=== PATIENT | female | born 1990 | race Hispanic/Latino ===

== ENCOUNTER 2017-07-09 10:00 | Emergency (ER) | payer MEDICAID, OTHER | END 2017-07-09 11:29 | disposition home or self-care (01) | LOC: EDH 10:00 | DX: Z32.00 Encounter for pregnancy test, result unknown (principal) | CPT/HCPCS: 36415; 84702 ==

== ENCOUNTER 2017-09-08 15:13 | Emergency (ER) | payer MEDICAID ==
[2017-09-08] MEDS ORDERED: SODIUM CHLORIDE 0.9% 1000ML 1,000 ML IV ONE (16:07)
[2017-09-08] MEDS ORDERED: ONDANSETRON HCL 4 MG/2 ML VIAL ONE (16:07)
[2017-09-08 16:08] LABS: BASOPHILS % (AUTO) 0.3 % (0.0-5.0); EOSINOPHILS % (AUTO) 0.4 % (0.0-8.0); HEMATOCRIT 36.8 % (36-48); LYMPHOCYTES % (AUTO) 17.8 % (21.0-51.0); MEAN CORPUSCULAR HEMOGLOBIN 32.8 pg (27.0-33.0); MEAN CORPUSCULAR HGB CONC 36.2 g/dL (32.0-36.0); MEAN CORPUSCULAR VOLUME 90.7 fL (79-99); MONOCYTES % (AUTO) 5.3 % (3.0-13.0); NEUTROPHILS % (AUTO) 76.2 % (40.0-77.0); PLATELET COUNT (AUTO) 431 K/uL (130-400); RED BLOOD CELL COUNT(AUTO) 4.06 MIL/uL (4.00-5.50); RED CELL DISTRIBUTION WIDTH 12.4 % (11.0-15.5); WHITE BLOOD COUNT (AUTO) 8.9 K/uL (4.8-10.8)
[2017-09-08 16:14] LABS: APPEARANCE,URINE Clear (CLEAR); BILIRUBIN,URINE Small (NEGATIVE); COLOR,URINE Dark Yellow (YELLOW); GLUCOSE, URINE (UA) Negative (NEGATIVE); KETONES,URINE >=160 mg/dL (NEGATIVE); LEUKOCYTE ESTERASE ,URINE Trace (NEGATIVE); NITRATE,URINE Negative (NEGATIVE); OCCULT BLOOD,URINE Negative (NEGATIVE); PH,URINE 5.5 (5.0-8.0); PROTEIN,URINE POS 1+ (NEGATIVE)
[2017-09-08 16:24] LABS: CREATININE 0.7 mg/dL (0.5-1.5); POTASSIUM 3.4 mmol/L (3.5-5.1)
[2017-09-08 16:25] LABS: BACTERIA,URINE Few /HPF (None Seen); RBC,URINE 0-1 /HPF (0-1)
[2017-09-08 16:26] LABS: MUCUS,URINE Moderate LPF (None Seen); SQUAMOUS EPITHELIAL CELL,UR Few /LPF (0-2)
[2017-09-08 16:29] LABS: ALBUMIN 3.4 g/dL (3.5-5.0); BILIRUBIN,TOTAL 0.5 mg/dL (0.2-1.0); TOTAL PROTEIN, SERUM 8.4 g/dL (6.0-8.3)
[2017-09-08] MEDS ORDERED: POTASSIUM CHLORIDE 20 MEQ ERTAB PO ONE (17:01)
== END 2017-09-08 17:49 | disposition home or self-care (01) ==
LOC: EDH 15:13
DX: K52.9 Noninfective gastroenteritis and colitis, unspecified (principal)
CPT/HCPCS: 36415; 80053; 81001; 85025; 87804 ×2; 96361; 96374; 99284; J2405; J7030

== ENCOUNTER 2018-01-02 17:21 | Observation (INO) | payer MEDICAID ==
[2018-01-02 17:59] LABS: APPEARANCE,URINE Clear (CLEAR); BILIRUBIN,URINE Negative (NEGATIVE); COLOR,URINE Yellow (YELLOW); GLUCOSE, URINE (UA) 250 mg/dL (NEGATIVE); KETONES,URINE Negative (NEGATIVE); LEUKOCYTE ESTERASE ,URINE Negative (NEGATIVE); NITRATE,URINE Negative (NEGATIVE); OCCULT BLOOD,URINE Negative (NEGATIVE); PROTEIN,URINE Negative (NEGATIVE); UROBILINOGEN,URINE 0.2 mg/dL (0.2-1.0)
[2018-01-02 18:22] LABS: BACTERIA,URINE Rare /HPF (None Seen); RBC,URINE None Seen /HPF (0-1); SQUAMOUS EPITHELIAL CELL,UR 0-2 /HPF (0-2); WBC,URINE 0-1 /HPF (0-1)
[2018-01-02 18:46] LABS: AMPHET/METH SCREEN,URINE NEGATIVE (NEGATIVE); BARBITURATE SCREEN, URINE NEGATIVE (NEGATIVE); BENZODIAZEPINES SCREEN,URINE NEGATIVE (NEGATIVE); CANNABINOID SCREEN,URINE NEGATIVE (NEGATIVE); COCAINE SCREEN,URINE NEGATIVE (NEGATIVE); OPIATE SCREEN,URINE NEGATIVE (NEGATIVE); PHENCYCLIDINE SCREEN,URINE NEGATIVE (NEGATIVE)
== END 2018-01-02 19:15 | disposition home or self-care (01) ==
LOC: EDH 17:21 → LDH 17:22
PROVIDERS: ADMIT Specialist; ATTEND Specialist
DX: O26.893 Other specified pregnancy related conditions, third trimester (principal); M25.512 Pain in left shoulder; M25.522 Pain in left elbow; Z3A.31 31 weeks gestation of pregnancy; Z79.899 Other long term (current) drug therapy
CPT/HCPCS: 80305; 81001; 99285; G0378 ×2

== ENCOUNTER 2018-05-12 07:34 | Day surgery (SDC) | payer MEDICAID ==
[2018-05-11 10:55] VITALS: BP 128/84
[2018-05-11 11:13] LABS: BASOPHILS % (AUTO) 0.5 % (0.0-5.0); EOSINOPHILS % (AUTO) 0.8 % (0.0-8.0); HEMATOCRIT 35.3 % (36-48); LYMPHOCYTES % (AUTO) 37.2 % (21.0-51.0); MEAN CORPUSCULAR HEMOGLOBIN 31.4 pg (27.0-33.0); MEAN CORPUSCULAR VOLUME 89.6 fL (79-99); MONOCYTES % (AUTO) 4.5 % (3.0-13.0); PLATELET COUNT (AUTO) 349 K/uL (130-400); RED BLOOD CELL COUNT(AUTO) 3.94 MIL/uL (4.00-5.50); RED CELL DISTRIBUTION WIDTH 13.7 % (11.0-15.5)
[2018-05-12] VITALS (17 sets, daily range): BP systolic 116–147; BP diastolic 81–98
[~2018-05-12] VITALS: Ht 157.5 cm; Wt 73.1 kg
[2018-05-12] MEDS ORDERED: LIDOCAINE PF 2% 5ML ABBOJECT ONE (08:00)
[2018-05-12] MEDS ORDERED: PROPOFOL 10 MG/ML 20ML VIAL IV ONE (08:00)
[2018-05-12] MEDS ORDERED: FENTANYL CITRATE PF 50 MCG/1 ML 2ML VIAL ONE (08:01)
[2018-05-12] MEDS: LACTATED RINGERS 1000ML 1,000 ML IV SCH ×2 (08:15→08:18)
[2018-05-12] MEDS ORDERED: STRONG IODINE SOLUTION 30ML BOTTLE ONE (08:29)
[2018-05-12] MEDS ORDERED: VASOPRESSIN 20 UNITS/ML 1ML VIAL ONE (08:33)
[2018-05-12] MEDS ORDERED: DEXAMETHASONE SOD PHOSPHATE 4 MG/ML 1ML VIAL ONE (08:36)
[2018-05-12] MEDS ORDERED: ONDANSETRON HCL 4 MG/2 ML VIAL ONE (08:37)
[2018-05-12] MEDS ORDERED: GLYCOPYRROLATE 1 MG/5 ML SYRINGE ONE (08:39)
[2018-05-12] MEDS ORDERED: MEPERIDINE-PF 25 MG/ML SYG ONE ×2 (09:11→09:20)
== END 2018-05-12 10:37 | disposition home or self-care (01) ==
LOC: DAH 07:34
PROVIDERS: ATTEND Specialist
DX: R87.613 High grade squamous intraepithelial lesion on cytologic smear of cervix (HGSIL) (principal); N81.2 Incomplete uterovaginal prolapse; Z90.49 Acquired absence of other specified parts of digestive tract; Z98.890 Other specified postprocedural states
CPT/HCPCS: 36415; 57520; 84702; 85025; A4510; A4600; J1100; J2001; J2175 ×2; J2405; J2704; J3010; J3490 ×2; J7120

== ENCOUNTER 2019-07-26 06:36 | Observation (INO) | payer MEDICAID ==
[2019-07-26] VITALS (19 sets, daily range): BP systolic 91–146; BP diastolic 54–71
[~2019-07-26] VITALS: Ht 162.6 cm; Wt 71.7 kg
[2019-07-26] MEDS ORDERED: LACTATED RINGERS 1000ML 1,000 ML IV ONE (07:25)
--- NOTE | 2019-07-26 08:23 | NUR ---
HEART TONES OBTAINED BY DOPPLER FOR A RATE OF 140BPM.
[2019-07-26] MEDS ORDERED: PHENYLEPHRINE HCL 10 MG/ML 1ML VIAL IV ONE (08:24)
[2019-07-26] MEDS ORDERED: ONDANSETRON HCL 4 MG/2 ML VIAL ONE (08:25)
[2019-07-26] MEDS ORDERED: EPHEDRINE SULFATE 50 MG/ML AMPULE ONE (08:25)
--- NOTE | 2019-07-26 09:57 | NUR ---
TRU BENJAMIN TO LISTEN FOR FHT, RATE 140. PT STABLE, NO SIGNS OF BLEEDING, OB PAD IS CLEAN. Addendum: 07/26/19 at 0958 by HOSSEIN STACK RN RN Amended: Links added.
--- NOTE | 2019-07-26 12:10 | NUR ---
Called Doctor Murguia to advise of pt c/o of cramping and to see if any pain medication could be given, okay to give tylenol 650mg po times one. At 1215- Doctor Murguia called back and said to not give any medication and transfer to women coden. Vital signs stable, advised pt of plan and called [facility] spoke to Kathya OTT and gave report. Transfered patient at 1225 pm Vi OTT received pt no concerns voiced.
== END 2019-07-26 14:41 | disposition home or self-care (01) ==
LOC: DAH 06:36 → LDH 06:37
PROVIDERS: ADMIT Specialist; ATTEND Specialist
DX: O34.32 Maternal care for cervical incompetence, second trimester (principal); Z3A.20 20 weeks gestation of pregnancy
CPT/HCPCS: 59320; A4215; A4221; A4222; A4223; A4351; A4663; G0378 ×2; J2370; J2405; J3490; J7120

== ENCOUNTER 2019-09-11 10:12 | Observation (INO) | payer MEDICAID ==
[~2019-09-11] VITALS: Ht 157.5 cm; Wt 72.1 kg
[2019-09-11 11:34] VITALS: BP 111/63
--- NOTE | 2019-09-11 12:00 | NUR ---
DR. STEWART ROUNDED AND INDICATED TO PATIENT OF PLAN OF CARE TO GIVE 4 DOSES OF DEXAMETHASONE 6MGS IM AND THEN SHE CAN BE DISCHARGED IN MORNING. PATIENT VERBALIZED UNDERSTANDING.
[2019-09-11] MEDS: DEXAMETHASONE SOD PHOSPHATE 4 MG/ML 1ML VIAL IM SCH ×2 (12:13→17:54)
[2019-09-11] MEDS ORDERED: MV-M1COM2 PO (15:43)
[2019-09-11 16:00] VITALS: BP 110/65
--- NOTE | 2019-09-11 18:00 | NUR ---
SECOND DOSE OF DEX ADMINISTERED TO LEFT GLUTEAL AND PATIENT TOLERATED WELL.
--- NOTE | 2019-09-11 19:15 | NUR ---
REPORT GIVEN TO TRU PÉREZ AND PATIENT CARE TRANSFERED AT THIS TIME.
[2019-09-11 19:23] VITALS: BP 131/71
[2019-09-11 23:20] VITALS: BP 125/62
[2019-09-12] MEDS: DEXAMETHASONE SOD PHOSPHATE 4 MG/ML 1ML VIAL IM SCH ×2 (00:11→06:10)
[2019-09-12 03:38] VITALS: BP 125/79
--- NOTE | 2019-09-12 07:20 | NUR ---
FHT taken via doppler - 140/min Addendum: 09/12/19 at 0842 by NOLAN CHING RN Amended: Links added.
[2019-09-12 07:29] VITALS: BP 111/57
[2019-09-12 08:07] VITALS: BP 111/57
--- NOTE | 2019-09-12 11:00 | NUR ---
verbal and written discharge instructions given, informed to call the office for follow up appointment in 2 weeks, no prescription given. informed to call the doctor for an concerns, pt voiced understanding to all things discussed. Addendum: 09/12/19 at 1108 by NOLAN CHING RN Amended: Links added.
[2019-09-12 11:04] VITALS: BP 106/60
--- NOTE | 2019-09-12 11:15 | NUR ---
pt is dismissed in stable condition, brought to private car via wheelchair by valeria bhakta pcp Addendum: 09/12/19 at 1130 by NOLAN CHING RN Amended: Links added.
== END 2019-09-12 11:15 | disposition home or self-care (01) ==
LOC: WSO 10:12 → WSH 10:13
PROVIDERS: ADMIT Specialist; ATTEND Specialist
DX: O34.32 Maternal care for cervical incompetence, second trimester (principal); Z3A.27 27 weeks gestation of pregnancy
CPT/HCPCS: 96372 ×2; G0378 ×11; J1100 ×4

== ENCOUNTER 2019-11-20 05:33 | Observation (INO) | payer MEDICAID ==
[~2019-11-20] VITALS: Ht 157.5 cm; Wt 75.3 kg
[~2019-11-20 05:33] MED LIST: MV-M1COM2 PO
[2019-11-20 05:49] VITALS: BP 122/81
[2019-11-20] MEDS ORDERED: LACTATED RINGERS 1000ML IV ONE (06:00)
[2019-11-20 06:17] LABS: APPEARANCE,URINE Clear (CLEAR); BILIRUBIN,URINE Negative (NEGATIVE); COLOR,URINE Dark Yellow (YELLOW); GLUCOSE, URINE (UA) Negative (NEGATIVE); KETONES,URINE >=80 mg/dL (NEGATIVE); LEUKOCYTE ESTERASE ,URINE Small (NEGATIVE); NITRATE,URINE Negative (NEGATIVE); OCCULT BLOOD,URINE Trace (NEGATIVE); PH,URINE 5.5 (5.0-8.0); PROTEIN,URINE Negative (NEGATIVE)
[2019-11-20 06:21] LABS: AMPHET/METH SCREEN,URINE NEGATIVE (NEGATIVE); BARBITURATE SCREEN, URINE NEGATIVE (NEGATIVE); BENZODIAZEPINES SCREEN,URINE NEGATIVE (NEGATIVE); CANNABINOID SCREEN,URINE NEGATIVE (NEGATIVE); COCAINE SCREEN,URINE NEGATIVE (NEGATIVE); OPIATE SCREEN,URINE NEGATIVE (NEGATIVE); PHENCYCLIDINE SCREEN,URINE NEGATIVE (NEGATIVE)
[2019-11-20 06:22] LABS: BACTERIA,URINE Rare /HPF (None Seen); RBC,URINE 0-1 /HPF (0-1)
[2019-11-20 06:23] LABS: MUCUS,URINE Few LPF (None Seen); SQUAMOUS EPITHELIAL CELL,UR Moderate /HPF (0-2)
[2019-11-20] MEDS ORDERED: LACTATED RINGERS 1000ML 1,000 ML IV PRN (06:37)
[2019-11-20 07:00] LABS: HEMATOCRIT 33.3 % (36-48); MEAN CORPUSCULAR HEMOGLOBIN 31.4 pg (27.0-33.0); MEAN CORPUSCULAR HGB CONC 34.5 g/dL (32.0-36.0); RED BLOOD CELL COUNT(AUTO) 3.66 MIL/uL (4.00-5.50); RED CELL DISTRIBUTION WIDTH 12.6 % (11.0-15.5)
[2019-11-20] MEDS ORDERED: AMPICILLIN 1GM+NS 50ML 50 ML IV SCH (07:00)
[2019-11-20] MEDS ORDERED: AMPICILLIN 2GM+NS 100ML 100 ML IV SCH (07:00)
[2019-11-20] MEDS ORDERED: PROMETHAZINE HCL 25 MG/ML 1ML AMPULE IM SCH (08:15)
[2019-11-20] MEDS ORDERED: MEPERIDINE-PF 50 MG/ML SYG IM SCH (08:15)
[2019-11-20 08:18] VITALS: BP 134/74
[2019-11-20 09:35] LABS: RAPID PLASMA REAGIN NONREACTIVE (NONREACTIVE)
[2019-11-23 08:11] LABS: HEPATITIS Bs ANTIGEN SCREEN P Negative (Negative)
== END 2019-11-20 13:24 | disposition home or self-care (01) ==
LOC: EDH 05:33 → LDH 05:34
PROVIDERS: ADMIT Specialist; ATTEND Specialist
DX: O26.893 Other specified pregnancy related conditions, third trimester (principal); Z3A.37 37 weeks gestation of pregnancy
CPT/HCPCS: 36415; 76815; 80305; 81001; 85027; 86592; 86701; 86850; 86900; 86901; 87340 ×2; 87390; 96365; 96366; 96372; 99284; G0378 ×8; J0290 ×2; J2175; J2550; J7120 ×2; 96360; 96361

== ENCOUNTER 2019-11-20 20:07 | Inpatient (IN) | payer MEDICAID ==
[~2019-11-20] VITALS: Ht 160 cm; Wt 74.8 kg
[2019-11-20 20:43] LABS: APPEARANCE,URINE SL CLOUDY (CLEAR); BILIRUBIN,URINE NEGATIVE (NEGATIVE); COLOR,URINE YELLOW (YELLOW); GLUCOSE, URINE (UA) NEGATIVE (NEGATIVE); KETONES,URINE 40 mg/dL (NEGATIVE); LEUKOCYTE ESTERASE ,URINE LARGE (NEGATIVE); NITRATE,URINE NEGATIVE (NEGATIVE); OCCULT BLOOD,URINE MODERATE (NEGATIVE); PH,URINE 8.5 (5.0-8.0); PROTEIN,URINE NEGATIVE (NEGATIVE)
[2019-11-20 20:51] LABS: BACTERIA,URINE Few /HPF (None Seen); WBC,URINE 26-50 /HPF (0-1)
[2019-11-20 20:53] LABS: SQUAMOUS EPITHELIAL CELL,UR Few /HPF (0-2)
[2019-11-20] MEDS ORDERED: LACTATED RINGERS 1000ML 1,000 ML IV PRN (21:23)
[2019-11-20] MEDS ORDERED: ROPIVACAINE 0.2% 100ML VIAL 100 ML EP SCH (21:30)
[2019-11-20] MEDS ORDERED: AMPICILLIN 2GM+NS 100ML 100 ML IV SCH (21:30)
[2019-11-20] MEDS ORDERED: NALOXONE HCL 0.4 MG/1 ML ML IV PRN (21:30)
[2019-11-20] MEDS ORDERED: LACTATED RINGERS 500 ML 500 ML IV PRN (21:30)
[2019-11-20] MEDS ORDERED: EPHEDRINE SULFATE 50 MG/ML AMPULE IVP PRN (21:30)
[2019-11-20 21:36] LABS: HEMATOCRIT 33.2 % (36-48); MEAN CORPUSCULAR HEMOGLOBIN 31.5 pg (27.0-33.0); MEAN CORPUSCULAR HGB CONC 34.3 g/dL (32.0-36.0); MEAN CORPUSCULAR VOLUME 91.7 fL (79-99); RED BLOOD CELL COUNT(AUTO) 3.62 MIL/uL (4.00-5.50); RED CELL DISTRIBUTION WIDTH 12.7 % (11.0-15.5); WHITE BLOOD COUNT (AUTO) 14.4 K/uL (4.8-10.8)
[2019-11-20] MEDS ORDERED: OXYTOCIN-LR 20 UNITS/1000 ML 1,000 ML IV ONE (21:49)
[2019-11-20] MEDS ORDERED: MEPERIDINE-PF 50 MG/ML SYG ONE (22:02)
[2019-11-20] MEDS ORDERED: MEPERIDINE-PF 50 MG/ML SYG IVP ONE (22:15)
[2019-11-20] MEDS: AMPICILLIN 1GM+NS 50ML 50 ML IV SCH (22:15)
[2019-11-20] MEDS ORDERED: PROMETHAZINE HCL 25 MG/ML 1ML AMPULE IM SCH (22:15)
[2019-11-20] MEDS ORDERED: ACETAMINOPHEN-CODEINE 300/30MG TAB PO PRN (22:30)
[2019-11-20] MEDS ORDERED: WITCH HAZEL 1 PAD TP PRN (22:30)
[2019-11-20] MEDS ORDERED: LANOLIN 30GM OINTMENT TP PRN (22:30)
[2019-11-20] MEDS ORDERED: DIPH,PERTUSS(ACELL),TET VAC/PF 0.5 ML VIAL IM PRN (22:30)
[2019-11-20] MEDS ORDERED: OXYTOCIN-LR 20 UNITS/1000 ML 1,000 ML IV SCH (22:30)
[2019-11-20] MEDS ORDERED: BENZOCAINE/LANOLIN/ALOE VERA 60 ML AEROSOL TP PRN (22:30)
[2019-11-20] MEDS ORDERED: IBUPROFEN 600 MG TABLET ONE (22:48)
[2019-11-21 01:22] VITALS: BP 113/75
--- NOTE | 2019-11-21 01:25 | NUR ---
Received report from João Kohli RN; Patient came in via wheelchair accompanied by João Kohli RN. She has an IV of LR with 20 units Pitocin infusing well regulated at 125 ml/hour. Fundus firm with small Lochia Rubra. Plan of care discussed with patient and , both verbalizes understanding.
[2019-11-21] MEDS: AMPICILLIN 1GM+NS 50ML 50 ML IV SCH (01:30)
[2019-11-21 02:54] VITALS: BP 115/69
[2019-11-21] MEDS: IBUPROFEN 600 MG TABLET PO PRN ×3 (04:28→17:29)
[2019-11-21 07:12] VITALS: BP 116/74
[2019-11-21] MEDS ORDERED: DOCUSATE SODIUM 100 MG CAP PO SCH (09:00)
[2019-11-21 11:21] VITALS: BP 107/53
--- NOTE | 2019-11-21 12:10 | NUR ---
DR. CORONEL ROUNDED AND DISCHARGED PT TO HOME. PATIENT STABLE.
[2019-11-21 16:12] VITALS: BP 114/81
--- NOTE | 2019-11-21 19:20 | NUR ---
DISCHARGE INSTRUCTIONS GIVEN TO PATIENT AND SCRIPT FOR PAIN MANAGEMENT GIVEN. PATIENT VERBALIZED UNDERSTANDING INSTRUCTIONS GIVEN.
--- NOTE | 2019-11-21 19:30 | NUR ---
PATIENT WAS TAKEN VIA W/C CARRYING BABY IN ARMS TO FAMILY VEHICLE AND WAS DISCHARGED TO SIGNIFICANT OTHER. PATIENT IS STABLE AND DENIES PAIN.
== END 2019-11-21 19:30 | disposition home or self-care (01) | DRG 560 ==
LOC: EDH 20:07 → OBSVTOIN 20:23 → LDH 20:23 → WSH 11-21 01:21
PROC: 10E0XZZ Delivery of Products of Conception, External Approach (ICD-10-PCS; principal; 2019-11-20)
PROC: 3E0234Z Introduction of Serum, Toxoid and Vaccine into Muscle, Percutaneous Approach (ICD-10-PCS; 2019-11-20)
DX: O75.89 Other specified complications of labor and delivery (principal); Z37.0 Single live birth; Z23 Encounter for immunization; Z3A.37 37 weeks gestation of pregnancy; Z83.3 Family history of diabetes mellitus
CPT/HCPCS: 36415; 76815; 80305; 81001; 85027; 86592; 86701; 86850; 86900; 86901; 87088; 87340; 87390; 96360; 96361; 96365; 96366; 96372; G0378; J0290; J2175; J2550; J2590; J7120

== ENCOUNTER 2021-11-26 10:30 | Observation (INO) | payer MEDICAID ==
[~2021-11-26] VITALS: Ht 154.9 cm; Wt 76.7 kg
[2021-11-26 10:32] VITALS: BP 138/77
[2021-11-26 11:26] LABS: APPEARANCE,URINE Cloudy (CLEAR); BILIRUBIN,URINE Negative (NEGATIVE); COLOR,URINE Yellow (YELLOW); GLUCOSE, URINE (UA) Negative (NEGATIVE); KETONES,URINE Trace mg/dL (NEGATIVE); LEUKOCYTE ESTERASE ,URINE Large (NEGATIVE); NITRATE,URINE Negative (NEGATIVE); OCCULT BLOOD,URINE Negative (NEGATIVE); PH,URINE 6.5 (5.0-8.0); PROTEIN,URINE Trace mg/dL (NEGATIVE)
[2021-11-26 11:43] LABS: BACTERIA,URINE Few /HPF (None Seen); MUCUS,URINE Rare LPF (None Seen); RBC,URINE 0-1 /HPF (0-1); SQUAMOUS EPITHELIAL CELL,UR Few /HPF (0-2)
[2021-11-26] MEDS ORDERED: LACTATED RINGERS 1000ML IV SCH (12:00)
[2021-11-26] MEDS ORDERED: CEFTRIAXONE 1G VIAL IVP SCH (12:00)
[2021-11-26] MEDS ORDERED: CEFTRIAXONE 1G VIAL ONE (12:16)
[2021-11-26] MEDS ORDERED: LACTATED RINGERS 1000ML 1,000 ML IV ONE (12:16)
== END 2021-11-26 13:10 | disposition home or self-care (01) ==
LOC: EDH 10:30 → LDH 10:31
PROVIDERS: ADMIT Obstetrics & Gynecology; ATTEND Obstetrics & Gynecology
DX: O99.891 Other specified diseases and conditions complicating pregnancy (principal); M54.9 Dorsalgia, unspecified; O24.419 Gestational diabetes mellitus in pregnancy, unspecified control; Z3A.33 33 weeks gestation of pregnancy
CPT/HCPCS: 81001; 87088; 96360; G0378 ×2; J0696; J7120